=== PATIENT | female | born 1975 | race Caucasian/White ===

== ENCOUNTER 2016-05-12 13:00 | Day surgery (SDC) | payer OTHER ==
[2016-05-12] MEDS ORDERED: LIDOCAINE 1% 5 ML SDV ID PRN (13:46)
[2016-05-12] MEDS ORDERED: LR 1,000 ML IV ONE (13:46)
[2016-05-12] MEDS ORDERED: SILVER NITRATE APPLICATOR 1 APPL TP ONE (16:10)
[2016-05-12] MEDS ORDERED: LIDOCAINE 2% 5 ML SDV ONE (17:13)
[2016-05-12] MEDS ORDERED: fentaNYL 100 MCG/2 ML INJ ONE (17:13)
[2016-05-12] MEDS ORDERED: DEXAMETHASONE 4 MG/ML VIAL ONE (17:13)
[2016-05-12] MEDS ORDERED: PROPOFOL 200 MG/20 ML VIAL ONE (17:13)
[2016-05-12] MEDS ORDERED: ONDANSETRON 4 MG/2 ML VIAL ONE (17:13)
[2016-05-12] MEDS ORDERED: KETOROLAC 30 MG/1 ML SDV ONE (17:13)
[2016-05-12] MEDS ORDERED: MIDAZOLAM 2 MG/2 ML VIAL ONE (17:20)
[2016-05-12] MEDS ORDERED: ACETAMINOPHEN/CODEINE 300/30MG TAB PO PRN (18:16)
--- NOTE | 2016-05-12 18:19 | GOP ---
[f rep st] OPERATIVE REPORT DATE OF OPERATION: 05/12/2016 SURGEON: Rosa Ramsey MD DATA MANAGEMENT CONSULTANT: None. ANESTHESIA: MAC. PREOPERATIVE DIAGNOSIS: Atypical endometrial cells. POSTOPERATIVE DIAGNOSIS: Endometrial polyp. PROCEDURE PERFORMED: Hysteroscopy, polypectomy. FINDINGS: Endometrial polyp and proliferative endometrium. SPECIMENS: Polyp and endometrial curettings. INDICATIONS: Mayela is a 41-year-old female, who is having menorrhagia. Endometrial biopsy showed atypical endometrial cells. Recommended hysteroscopy for evaluation. DESCRIPTION OF PROCEDURE: The patient was taken to the operating room, where she was prepped and draped in normal sterile fashion in the high dorsal lithotomy position. A surgical timeout was performed verifying the patient's name, date of , planned procedure, and site. The patient emptied her bladder prior to the procedure. A bivalve speculum was placed in the patient's vagina. The anterior aspect of the cervix was grasped with a single-toothed tenaculum. The patient received a paracervical block of 1% lidocaine. Her cervix was already dilated to able to fit the hysteroscope. The hysteroscope was placed into the uterine cavity. The uterus was visualized. There was a small endometrial polyp that was removed with the polyp blade, and proliferative endometrium that was removed with the polyp blade. Estimated fluid deficit was 500 mL. The hysteroscope was removed. The bivalve speculum was then removed. Hemostasis was obtained with silver nitrate, and the patient was stable to recovery room. COMPLICATIONS: None. FLUID DEFICIT: 500 mL. OUTCOME: Stable to recovery room. /[id number]/MODL MTDD
== END 2016-05-12 19:20 | disposition home or self-care (01) ==
LOC: FSGY 13:00
PROVIDERS: ATTEND Obstetrics & Gynecology
PROC: 0UB98ZX Excision of Uterus, Via Natural or Artificial Opening Endoscopic, Diagnostic (ICD-10-PCS; principal; 2016-05-12 14:30)
DX: N84.0 Polyp of corpus uteri (principal); N92.0 Excessive and frequent menstruation with regular cycle
CPT/HCPCS: 58558; C1782; J1100; J1885; J2250; J2405; J2704; J3010

== ENCOUNTER → 2017-04-25 | Outpatient (CLI) | payer OTHER | LOC: FIMAGING 12:09 | PROVIDERS: ATTEND Family Medicine | DX: Z12.31 Encounter for screening mammogram for malignant neoplasm of breast (principal); Z80.3 Family history of malignant neoplasm of breast | CPT/HCPCS: G0202 ==